=== PATIENT | female | born 1980 | race Caucasian/White ===

== ENCOUNTER 2017-04-23 15:47 | Emergency (ER) | payer BC ==
[~2017-04-23] VITALS: Ht 165.1 cm; Wt 89.8 kg
[~2017-04-23 15:47] MED LIST: PRENTAB26 PO
[2017-04-23 15:51] VITALS: TEMP 37.5; Ht 165.1 cm; Wt 89.8 kg
[2017-04-23] MEDS ORDERED: TRAMADOL HCL 50 MG HOME PACK PO ONE (16:15)
[2017-04-23 16:42] LABS: BASO % 0.6 %; BASO ABS # 0.04 K/uL (0-0.2); COMPLETE YES; EOS % 0.9 %; HEMATOCRIT 42.1 % (37-47); IG% 0.2 %; LYMPH % 29.2 %; LYMPH ABS # 1.87 K/uL (1.2-3.4); MEAN CELL VOLUME 88.1 fL (80-100); MEAN CORPUSCULAR HEMOGLOBIN 29.5 pg (25-34); MEAN CORPUSCULAR HGB CONC 33.5 g/dl (32-36); MEAN PLATELET VOLUME 10.7 fL (7.4-10.4); MONO % 8.7 %; NEUT % 60.4 %; PLATELET COUNT 191 K/uL (130-400); RED BLOOD COUNT 4.78 M/uL (4.2-5.4); WHITE BLOOD COUNT 6.41 K/uL (4.8-10.8)
[2017-04-23 16:54] LABS: INR 0.9 (0.9-1.1); PROTHROMBIN TIME (PATIENT) 9.7 SECONDS (9.0-12.0)
[2017-04-23 16:58] LABS: BUN/CREATININE RATIO 14.2 (10-20); CALCIUM 8.9 mg/dl (8.5-10.1); CREATININE 0.69 mg/dl (0.60-1.20)
[2017-04-23 17:05] LABS: PREG INTERNAL NEGATIVE QC NEG CLEAR BACKGROUND; PREG INTERNAL POSITIVE QC POS CONTROL LINE
--- NOTE | 2017-04-23 17:13 | EMERGENCY ROOM VISIT NOTE ---
History Report prepared by Laine: Vitaliy Glover Under the Supervision of: Dr. Chel Govea D.O. First contact with patient: 15:55 Chief Complaint: ABNORMAL LABS Stated Complaint: CLOT IN RIGHT LOWER LEG History of Present Illness The patient is a 36 year old female who presents to the Emergency Room with complaints of abnormal labs that were read prior to arrival. She rates her discomfort as a 5.5/10 in severity. The patient states that she was experiencing lower extremity pain two days ago. She reports that the pain worsened yesterday and today, which prompted her to visit [facility]. The patient states that she had an venous ultrasound done, which showed a blood clot in her right lower extremity. She reports that [facility] outpatient care sent her to the ED. The patient states that she is still currently experiencing right lower extremity pain. She admits that she is taking oral contraceptives. The patient reports that she recently went on a [address] , but denies any other travel. She denies a family history or personal prior history of a blood clot. The patient denies chest pain, SOB, tobacco use, alcohol use, any exertional activity that would put her at risk of trauma, any pertinent medical or surgical history, and any medications. Source of History: patient Onset: prior to arrival Position: other (global) Symptom Intensity: 5.5/10 Quality: other (blood clot) Associated Symptoms: + numbness, No chest pain, No SOB Note: Lower extremity pain Review of Systems See HPI for pertinent positives & negatives. A total of 10 systems reviewed and were otherwise negative. Past Medical & Surgical The patient reports no pertinent medical or surgical history. Family History Patient reports no known family medical history. Social History Smoking Status: Never Smoker Occupation Status: employed Current/Historical Medications Scheduled Rivaroxaban (Xarelto), 1 TAB PO BID Allergies Coded Allergies: Amoxicillin (Verified Allergy, Intermediate, Rash, 04/23/17) Physical Exam Vital Signs Date Time Temp Pulse Resp B/P (MAP) Pulse Ox O2 Delivery O2 Flow Rate FiO2 04/23/17 18:39 95 140/102 95 04/23/17 17:41 89 133/94 97 04/23/17 15:51 37.5 98 16 131/92 97 Room Air Physical Exam GENERAL: alert, well appearing, well nourished, no distress, non-toxic EYE EXAM: normal conjunctiva, PERRL and EOM's grossly intact OROPHARYNX: no exudate, no erythema, lips, buccal mucosa, and tongue normal and mucous membranes are moist NECK: supple, no nuchal rigidity, no adenopathy, non-tender LUNGS: Clear to auscultation. Normal chest wall mechanics HEART: no murmurs, S1 normal and S2 normal ABDOMEN: abdomen soft, non-tender, normo-active bowel sounds, no masses, no rebound or guarding. BACK: Back is symmetrical on inspection and there is no deformity, no midline tenderness, no CVA tenderness. SKIN: no rashes and no bruising UPPER EXTREMITIES: upper extremities are grossly normal. LOWER EXTREMITIES: No pitting edema. Right calf tenderness. NEURO EXAM: Normal sensorium, cranial nerves II-XII grossly intact, normal speech, no gross weakness of arms, no gross weakness of legs. No drift. Finger to nose intact. Gross sensation intact. Medical Decision & Procedures Laboratory Results 04/23/17 16:32 Red Blood Count 4.78, Mean Corpuscular Volume 88.1, Mean Corpuscular Hemoglobin 29.5, Mean Corpuscular Hemoglobin Concent 33.5, Mean Platelet Volume 10.7, Neutrophils (%) (Auto) 60.4, Lymphocytes (%) (Auto) 29.2, Monocytes (%) (Auto) 8.7, Eosinophils (%) (Auto) 0.9, Basophils (%) (Auto) 0.6, Neutrophils # (Auto) 3.87, Lymphocytes # (Auto) 1.87, Monocytes # (Auto) 0.56, Eosinophils # (Auto) 0.06, Basophils # (Auto) 0.04 04/23/17 16:32 Test 04/23/17 16:32 White Blood Count 6.41 K/uL (4.8-10.8) Red Blood Count 4.78 M/uL (4.2-5.4) Hemoglobin 14.1 g/dL (12.0-16.0) Hematocrit 42.1 % (37-47) Mean Corpuscular Volume 88.1 fL (80-100) Mean Corpuscular Hemoglobin 29.5 pg (25-34) Mean Corpuscular Hemoglobin Concent 33.5 g/dl (32-36) Platelet Count 191 K/uL (130-400) Mean Platelet Volume 10.7 fL (7.4-10.4) Neutrophils (%) (Auto) 60.4 % Lymphocytes (%) (Auto) 29.2 % Monocytes (%) (Auto) 8.7 % Eosinophils (%) (Auto) 0.9 % Basophils (%) (Auto) 0.6 % Neutrophils # (Auto) 3.87 K/uL (1.4-6.5) Lymphocytes # (Auto) 1.87 K/uL (1.2-3.4) Monocytes # (Auto) 0.56 K/uL (0.11-0.59) Eosinophils # (Auto) 0.06 K/uL (0-0.5) Basophils # (Auto) 0.04 K/uL (0-0.2) RDW Standard Deviation 40.7 fL (36.4-46.3) RDW Coefficient of Variation 12.8 % (11.5-14.5) Immature Granulocyte % (Auto) 0.2 % Immature Granulocyte # (Auto) 0.01 K/uL (0.00-0.02) Prothrombin Time 9.7 SECONDS (9.0-12.0) Prothromb Time International Ratio 0.9 (0.9-1.1) Anion Gap 9.0 mmol/L (3-11) Est Creatinine Clear Calc Drug Dose 127.2 ml/min Estimated GFR () 131.6 Estimated GFR (Non- 113.6 BUN/Creatinine Ratio 14.2 (10-20) Calcium Level 8.9 mg/dl (8.5-10.1) Human Chorionic Gonadotropin, Qual NEG (NEG) Laboratory results per my review. Medications Administered Medications (Trade) Dose Ordered Sig/Debra Route Start Time Stop Time Status Last Admin Dose Admin Rivaroxaban (Xarelto Tab) 15 mg NOW ONCE PO 04/23/17 18:30 04/23/17 18:31 DC 04/23/17 18:36 15 MG ED Course 1615: Ordered Tramadol HCl 1 homepack PO. 1625: I reviewed the patient's previous Venous Ultrasound of her right lower extremity taken at [facility] today. 1633: The patient was evaluated in room C08. A complete history and physical exam was performed. 1818: Upon reevaluation, the patient is feeling better. I discussed the findings and the treatment plan with the patient. She verbalizes agreement and understanding. The patient was discharged home. 1830: Ordered Xarelto Tab 15 mg PO. Medical Decision The differential diagnosis includes etiologies such as DVT, musculoskeletal, infection, joint effusion, trauma, lymphedema, idiopathic, CHF, as well as others were entertained. No sx to suggest PE, no evidence of more proximal clot. Labs reassuring. After rn case mgr and pharmacist discussion and investigation as well as consultation with pt's PCP, pt started on xarelto. Pt counseled on bleeding risks, sx to watch/return for, f/u with PCP, she verbalized understanding and was agreeable with plan. Medication Reconcilliation Current Medication List: was personally reviewed by me Blood Pressure Screening Patient's blood pressure: Elevated blood pressure Blood pressure disposition: Elevated BP felt to be situational Impression Primary Impression: DVT (deep venous thrombosis) Scribe Attestation The scribe's documentation has been prepared under my direction and personally reviewed by me in its entirety. I confirm that the note above accurately reflects all work, treatment, procedures, and medical decision making performed by me. Departure Information Dispostion Home / Self-Care Prescriptions Rivaroxaban (Xarelto) 15 Mg Tab 1 TAB PO BID for 21 Days, #42 TAB Prov: Chel Govea, DO 04/23/17 Referrals Godfrey Hook M.D. (PCP) Forms HOME CARE DOCUMENTATION FORM, IMPORTANT VISIT INFORMATION, WORK / SCHOOL INSTRUCTIONS Patient Instructions My [facility] Additional Instructions Please stop taking her control pills. Please use an alternative form of contraception. If you have any worsening pain, develop increased swelling, redness, fevers, trouble breathing, palpitations, chest pain or pressure, or you have any other new concerns, please return the emergency room. Problem Qualifiers Primary Impression: DVT (deep venous thrombosis) DVT location: lower extremity Affected thrombotic vein of extremity: tibial Chronicity: acute Laterality: right Qualified Codes: I82.441 - Acute embolism and thrombosis of right tibial vein
[2017-04-23] MEDS ORDERED: RIVAROXABAN 20 MG TAB PO STA (18:02)
[2017-04-23] MEDS ORDERED: XRL15 PO (18:04)
[2017-04-23] MEDS ORDERED: RIVAROXABAN TAB 15 MG TAB PO ONE (18:30)
[2017-04-23 18:39] VITALS: BP 140/102; PULSE 95; O2SAT 95
--- NOTE | 2017-04-23 18:50 | Pharmacy Progress Note ---
ED Pharmacist Counseling Note Date of Service: Apr 23, 2017. I spent 20 minutes with the patient explaining outpatient options for anticoagulation. I contacted [facility] and determined the patient's co-pay for multiple medications. Discussed warfarin/Lovenox vs. apixaban vs. rivaroxaban. Adverse effects, drug interactions, bleed risk, and cost were discussed. Patient and her decided to start rivaroxaban. Case Management (Felicia) obtained outpatient supplementary insurance card which should enable the patient to have a $0 co-pay for the entire course of therapy. All of the patient's questions and concerns were addressed.
== END 2017-04-23 18:39 | disposition home or self-care (01) ==
LOC: C.EDB 15:48 → C.EDC 18:39
DX: I82.4Z1 Acute embolism and thrombosis of unspecified deep veins of right distal lower extremity (principal); Z79.899 Other long term (current) drug therapy; Z88.0 Allergy status to penicillin